=== PATIENT | male | born 1955 | race Two or more races ===

== ENCOUNTER 2021-02-16 19:53 | Inpatient (IN) | payer BC, MEDICARE ==
[~2021-02-16] VITALS: Ht 182.9 cm; Wt 178.0 kg
[2021-02-16] MEDS ORDERED: dilTIAZem 25 MG/5 ML VIAL IV ONE (20:15)
[2021-02-16 20:43] LABS: Basophils # (auto) 0 10 ^3/uL (0-0.2); Basophils % (auto) 0.2 % (0.0-2.0); Eosinophils # (auto) 0 10 ^3/uL (0-0.8); Eosinophils % (auto) 0.1 % (0.0-7.0); Hematocrit 49.9 % (41.0-53.0); Hemoglobin 16.6 g/dL (13.5-17.5); Lymphocytes # (auto) 0.8 10 ^3/uL (0.4-5.4); Lymphocytes % (auto) 10.3 % (10.0-50.0); Mean Corpuscular Hemoglobin 29.5 pg (28.0-32.0); Mean Corpuscular Hgb Conc. 33.4 g/dL (32.0-36.0); Mean Corpuscular Volume 88.4 fL (80.0-100.0); Monocytes # (auto) 0.7 10 ^3/uL (0-1.3); Monocytes % (auto) 10.3 % (0.0-12.0); Neutrophils # (auto) 5.8 10 ^3/uL (1.6-8.6); Neutrophils % (auto) 79.1 % (37.0-80.0); Nucleated Red Blood Cells % 0.3 %; Red Blood Cells 5.64 10^6/uL (4.5-5.90); Red Cell Distribution Width 16.2 % (11.8-14.3); White Blood Cell 7.3 10^3/uL (4.4-10.8)
[2021-02-16 21:10] VITALS: BP 102/63
[2021-02-16 21:56] LABS: Albumin 3.1 g/dL (3.4-5.0); Calcium 8.3 mg/dL (8.5-10.1); Potassium 4.6 mmol/L (3.5-5.1)
[2021-02-16 22:04] LABS: Total Protein 7.2 g/dL (6.4-8.2)
[2021-02-16 23:16] VITALS: BP 123/85
[2021-02-16 23:52] VITALS: BP 122/79
[2021-02-17] VITALS (9 sets, daily range): BP systolic 95–146; BP diastolic 42–100
[2021-02-17] MEDS ORDERED: dilTIAZem 25 MG/5 ML VIAL IV ONE ×2 (02:00→07:45)
[2021-02-17] MEDS ORDERED: dilTIAZem 25 MG/5 ML VIAL IV PRN (06:30)
[2021-02-17] MEDS ORDERED: ONDANSETRON HCL 4 MG/2 ML VIAL IV PRN (06:45)
[2021-02-17] MEDS ORDERED: MORPHINE SULFATE INJECTION 2 MG/ML SYRG IV PRN (06:45)
[2021-02-17] MEDS ORDERED: DOCUSATE SOD 100 MG CAP PO PRN (06:45)
[2021-02-17] MEDS ORDERED: HYDROcodone-ACET 5/325MG TAB PO PRN (06:45)
[2021-02-17] MEDS ORDERED: ALBUTEROL SULF HFA 90MCG INH 200DOSE IN PRN (06:45)
[2021-02-17] MEDS ORDERED: NITROGLYCERIN 0.4 MG SL TAB SL PRN (06:45)
[2021-02-17 08:44] LABS: Magnesium 2.4 mg/dL (1.6-2.6)
[2021-02-17] MEDS: dilTIAZem 125mg/125ml BAG KIT 100 ML IV SCH (09:05)
[2021-02-17] MEDS: DexAMETHasone SOD PHOS 10MG/1ML VIAL INJ IV SCH (09:06)
[2021-02-17] MEDS: cefTRIAXone 1GM/50ML D5W 50 ML IV SCH (09:06)
[2021-02-17] MEDS: FAMOTIDINE (10MG/ML) 2ML VL IV SCH ×2 (09:06→22:30)
[2021-02-17] MEDS: MULTIPLE VITAMIN TAB PO SCH (09:07)
[2021-02-17] MEDS: CHOLECALCIFEROL (VITD3) 2,000 UNIT CAP/TAB PO SCH (09:07)
[2021-02-17] MEDS: ZINC SULFATE 220mg CAP or TAB PO SCH (09:08)
[2021-02-17] MEDS: ASCORBIC ACID 1,000 MG TAB PO SCH (09:10)
[2021-02-17] MEDS: DOXYCYCLINE 100MG/250ML 250 ML IV SCH ×2 (09:24→22:30)
[2021-02-17] MEDS ORDERED: BUDESONIDE (INHALATION) 180 MCG IH IN SCH (10:00)
[2021-02-17] MEDS ORDERED: HYDR200T36 PO (13:37)
[2021-02-17] MEDS ORDERED: FLUT1AER3 INH (13:37)
[2021-02-17] MEDS ORDERED: DUTA1CAP PO (13:37)
[2021-02-17] MEDS ORDERED: PROM1SOL4 PO (13:37)
[2021-02-17] MEDS ORDERED: LEVO-28 PO (13:37)
[2021-02-17] MEDS ORDERED: METO-289 PO (13:37)
[2021-02-17] MEDS ORDERED: IVER3TAB PO (13:37)
[2021-02-17] MEDS ORDERED: HYDR-4069 PO (13:37)
[2021-02-17] MEDS ORDERED: REMDESIVIR PER PHARMACY 0 ML IV SCH (13:45)
[2021-02-17] MEDS ORDERED: REMDESIVIR 200 MG in NS 210ml LOADING DOSE ADULT IV ONE (15:00)
[2021-02-17] MEDS: HEPARIN SODIUM (PORCINE) 5000 UNITS/ML 1ML VIAL SC SCH ×2 (15:41→22:30)
[2021-02-17] MEDS: ALBUTEROL SULF 2.5 MG/0.5ML(0.5%) NEB SOLN NEB PRN (22:24)
[2021-02-17] MEDS: BUDESONIDE (INHALATION) 0.5 MG/2 ML NEB NEB SCH (22:25)
[2021-02-18] VITALS (9 sets, daily range): BP systolic 91–126; BP diastolic 44–94
[2021-02-18] MEDS: dilTIAZem 125mg/125ml BAG KIT 100 ML IV SCH (03:45)
[2021-02-18] MEDS: HEPARIN SODIUM (PORCINE) 5000 UNITS/ML 1ML VIAL SC SCH (05:57)
[2021-02-18] MEDS: BUDESONIDE (INHALATION) 0.5 MG/2 ML NEB NEB SCH ×3 (06:01→22:21)
[2021-02-18] MEDS: ALBUTEROL SULF 2.5 MG/0.5ML(0.5%) NEB SOLN NEB PRN (06:01)
[2021-02-18] MEDS: FAMOTIDINE (10MG/ML) 2ML VL IV SCH ×2 (09:44→22:05)
[2021-02-18] MEDS: MULTIPLE VITAMIN TAB PO SCH (09:44)
[2021-02-18] MEDS: CHOLECALCIFEROL (VITD3) 2,000 UNIT CAP/TAB PO SCH (09:44)
[2021-02-18] MEDS: DexAMETHasone SOD PHOS 10MG/1ML VIAL INJ IV SCH (09:44)
[2021-02-18] MEDS: ASCORBIC ACID 1,000 MG TAB PO SCH (09:44)
[2021-02-18] MEDS: cefTRIAXone 1GM/50ML D5W 50 ML IV SCH (09:44)
[2021-02-18] MEDS: ZINC SULFATE 220mg CAP or TAB PO SCH (09:44)
[2021-02-18 09:53] LABS: Basophils # (auto) 0 10 ^3/uL (0-0.2); Basophils % (auto) 0.1 % (0.0-2.0); Eosinophils # (auto) 0 10 ^3/uL (0-0.8); Hematocrit 47.6 % (41.0-53.0); Lymphocytes # (auto) 0.7 10 ^3/uL (0.4-5.4); Lymphocytes % (auto) 7.4 % (10.0-50.0); Mean Corpuscular Hemoglobin 29.8 pg (28.0-32.0); Mean Corpuscular Hgb Conc. 33.6 g/dL (32.0-36.0); Mean Corpuscular Volume 88.7 fL (80.0-100.0); Monocytes # (auto) 0.9 10 ^3/uL (0-1.3); Monocytes % (auto) 9.2 % (0.0-12.0); Neutrophils # (auto) 8.2 10 ^3/uL (1.6-8.6); Neutrophils % (auto) 83.3 % (37.0-80.0); Nucleated Red Blood Cells % 0.2 %; Red Blood Cells 5.37 10^6/uL (4.5-5.90); Red Cell Distribution Width 16.2 % (11.8-14.3); White Blood Cell 9.8 10^3/uL (4.4-10.8)
[2021-02-18] MEDS: DOXYCYCLINE 100MG/250ML 250 ML IV SCH ×2 (09:58→22:05)
[2021-02-18 10:10] LABS: Albumin 2.5 g/dL (3.4-5.0); Calcium 8.4 mg/dL (8.5-10.1); Potassium 4.3 mmol/L (3.5-5.1)
[2021-02-18 10:14] LABS: BUN/Creatinine Ratio 20.7; Bilirubin, Total 1.1 mg/dL (0.2-1.0); Total Protein 6.2 g/dL (6.4-8.2)
[2021-02-18] MEDS ORDERED: DIGOXIN (250MCG/ML) 2 ML AMPULE IV ONE (10:30)
[2021-02-18] MEDS ORDERED: ROCURONIUM 10MG/ML 10ML VIAL IV ONE ×2 (10:50→11:15)
[2021-02-18] MEDS ORDERED: ETOMIDATE (2MG/ML) 20ML VIAL IV ONE ×2 (10:50→11:15)
[2021-02-18] MEDS ORDERED: MIDAZOLAM DRIP 50 mg/50mL 50 ML IV ONE (11:03)
[2021-02-18] MEDS ORDERED: fentaNYL Drip 2500mCg/250mlNS 250 ML IV ONE (11:05)
[2021-02-18] MEDS: MIDAZOLAM DRIP 50 mg/50mL 50 ML IV SCH (11:45)
[2021-02-18] MEDS: fentaNYL Drip 2500mCg/250mlNS 250 ML IV SCH (11:45)
[2021-02-18] MEDS: FUROSEMIDE 20 MG/2 ML VIAL IV SCH (15:05)
[2021-02-18] MEDS: REMDESIVIR 100mg 100 MG in SODIUM CHL 0.9% 230 ML IV SCH (15:05)
[2021-02-18] MEDS: APIXABAN 5 MG TAB PO SCH ×2 (16:19→22:06)
[2021-02-18] MEDS ORDERED: NOREPINEPHRINE 8 MG/250ML KIT 250 ML IV ONE (18:00)
[2021-02-18] MEDS: NOREPINEPHRINE 8 MG/250ML KIT 250 ML IV SCH (18:36)
[2021-02-18] MEDS: AMIODARONE HCL 200 MG TAB PO SCH (22:06)
[2021-02-19] VITALS (81 sets, daily range): BP systolic 67–150; BP diastolic 17–66
[2021-02-19 09:32] LABS: Basophils # (auto) 0 10 ^3/uL (0-0.2); Basophils % (auto) 0.2 % (0.0-2.0); Eosinophils # (auto) 0 10 ^3/uL (0-0.8); Eosinophils % (auto) 0.2 % (0.0-7.0); Hematocrit 50.7 % (41.0-53.0); Hemoglobin 16.6 g/dL (13.5-17.5); Lymphocytes # (auto) 0.6 10 ^3/uL (0.4-5.4); Lymphocytes % (auto) 4.1 % (10.0-50.0); Mean Corpuscular Hemoglobin 29.4 pg (28.0-32.0); Mean Corpuscular Hgb Conc. 32.6 g/dL (32.0-36.0); Mean Corpuscular Volume 89.9 fL (80.0-100.0); Monocytes # (auto) 1.8 10 ^3/uL (0-1.3); Monocytes % (auto) 11.6 % (0.0-12.0); Neutrophils # (auto) 13.2 10 ^3/uL (1.6-8.6); Neutrophils % (auto) 83.9 % (37.0-80.0); Nucleated Red Blood Cells % 0.3 %; Red Blood Cells 5.64 10^6/uL (4.5-5.90); Red Cell Distribution Width 16.6 % (11.8-14.3); White Blood Cell 15.7 10^3/uL (4.4-10.8)
[2021-02-19] MEDS: FUROSEMIDE 20 MG/2 ML VIAL IV SCH (09:37)
[2021-02-19] MEDS: FAMOTIDINE (10MG/ML) 2ML VL IV SCH ×2 (09:37→21:55)
[2021-02-19] MEDS: DexAMETHasone SOD PHOS 10MG/1ML VIAL INJ IV SCH (09:37)
[2021-02-19] MEDS: cefTRIAXone 1GM/50ML D5W 50 ML IV SCH (09:37)
[2021-02-19] MEDS: AMIODARONE HCL 200 MG TAB PO SCH ×2 (09:38→22:01)
[2021-02-19] MEDS: ASCORBIC ACID 1,000 MG TAB PO SCH (09:38)
[2021-02-19] MEDS: APIXABAN 5 MG TAB PO SCH ×2 (09:38→22:01)
[2021-02-19] MEDS: CHOLECALCIFEROL (VITD3) 2,000 UNIT CAP/TAB PO SCH (09:38)
[2021-02-19] MEDS: ZINC SULFATE 220mg CAP or TAB PO SCH (09:38)
[2021-02-19] MEDS: MULTIPLE VITAMIN TAB PO SCH (09:38)
[2021-02-19 09:43] LABS: Albumin 2.5 g/dL (3.4-5.0); Calcium 8.5 mg/dL (8.5-10.1); Potassium 5.1 mmol/L (3.5-5.1)
[2021-02-19 09:47] LABS: BUN/Creatinine Ratio 25.4; Bilirubin, Total 1.1 mg/dL (0.2-1.0); Total Protein 6.2 g/dL (6.4-8.2)
[2021-02-19] MEDS: MIDAZOLAM DRIP 50 mg/50mL 50 ML IV SCH ×4 (09:56→21:53)
[2021-02-19] MEDS: BUDESONIDE (INHALATION) 0.5 MG/2 ML NEB NEB SCH ×2 (10:55→18:58)
[2021-02-19] MEDS: fentaNYL Drip 2500mCg/250mlNS 250 ML IV SCH ×2 (11:15→21:50)
[2021-02-19] MEDS: DOXYCYCLINE 100MG/250ML 250 ML IV SCH ×2 (11:47→22:00)
[2021-02-19] MEDS: REMDESIVIR 100mg 100 MG in SODIUM CHL 0.9% 230 ML IV SCH (15:47)
[2021-02-19] MEDS: dilTIAZem 125mg/125ml BAG KIT 100 ML IV SCH ×2 (16:26)
[2021-02-19] MEDS: NOREPINEPHRINE 8 MG/250ML KIT 250 ML IV SCH (16:34)
[2021-02-19] MEDS: ALBUTEROL SULF 2.5 MG/0.5ML(0.5%) NEB SOLN NEB PRN (18:58)
[2021-02-20] VITALS (104 sets, daily range): BP systolic 79–120; BP diastolic 33–71
[2021-02-20] MEDS: MIDAZOLAM DRIP 50 mg/50mL 50 ML IV SCH ×6 (00:48→21:06)
[2021-02-20 04:18] LABS: Basophils # (auto) 0 10 ^3/uL (0-0.2); Basophils % (auto) 0.1 % (0.0-2.0); Eosinophils # (auto) 0 10 ^3/uL (0-0.8); Hematocrit 48.3 % (41.0-53.0); Hemoglobin 15.6 g/dL (13.5-17.5); Lymphocytes # (auto) 0.5 10 ^3/uL (0.4-5.4); Mean Corpuscular Hemoglobin 28.8 pg (28.0-32.0); Mean Corpuscular Hgb Conc. 32.2 g/dL (32.0-36.0); Mean Corpuscular Volume 89.4 fL (80.0-100.0); Monocytes # (auto) 1.6 10 ^3/uL (0-1.3); Monocytes % (auto) 12.4 % (0.0-12.0); Neutrophils % (auto) 83.5 % (37.0-80.0); Nucleated Red Blood Cells % 0.2 %; Red Cell Distribution Width 16.3 % (11.8-14.3); White Blood Cell 13.2 10^3/uL (4.4-10.8)
[2021-02-20 04:33] LABS: Albumin 2.3 g/dL (3.4-5.0); Potassium 4.8 mmol/L (3.5-5.1)
[2021-02-20 04:38] LABS: BUN/Creatinine Ratio 25.9; Bilirubin, Total 1.1 mg/dL (0.2-1.0); Total Protein 5.7 g/dL (6.4-8.2)
[2021-02-20] MEDS: NOREPINEPHRINE 8 MG/250ML KIT 250 ML IV SCH (06:41)
[2021-02-20] MEDS: cefTRIAXone 1GM/50ML D5W 50 ML IV SCH (08:35)
[2021-02-20] MEDS: fentaNYL Drip 2500mCg/250mlNS 250 ML IV SCH ×2 (09:18→22:00)
[2021-02-20] MEDS ORDERED: FUROSEMIDE 20 MG/2 ML VIAL IV ONE (09:30)
[2021-02-20] MEDS: ZINC SULFATE 220mg CAP or TAB PO SCH (09:59)
[2021-02-20] MEDS: MULTIPLE VITAMIN TAB PO SCH (10:00)
[2021-02-20] MEDS: APIXABAN 5 MG TAB PO SCH ×2 (10:00→21:07)
[2021-02-20] MEDS: ASCORBIC ACID 1,000 MG TAB PO SCH (10:00)
[2021-02-20] MEDS: CHOLECALCIFEROL (VITD3) 2,000 UNIT CAP/TAB PO SCH (10:00)
[2021-02-20] MEDS: DexAMETHasone SOD PHOS 10MG/1ML VIAL INJ IV SCH (10:01)
[2021-02-20] MEDS: FAMOTIDINE (10MG/ML) 2ML VL IV SCH ×2 (10:01→21:00)
[2021-02-20] MEDS: AMIODARONE HCL 200 MG TAB PO SCH ×2 (10:01→21:07)
[2021-02-20] MEDS: FUROSEMIDE 20 MG/2 ML VIAL IV SCH (10:02)
[2021-02-20] MEDS: DOXYCYCLINE 100MG/250ML 250 ML IV SCH ×2 (10:03→21:06)
[2021-02-20] MEDS: ALBUTEROL SULF 2.5 MG/0.5ML(0.5%) NEB SOLN NEB PRN (12:44)
[2021-02-20] MEDS: BUDESONIDE (INHALATION) 0.5 MG/2 ML NEB NEB SCH ×2 (12:44→22:27)
[2021-02-20] MEDS: dilTIAZem 125mg/125ml BAG KIT 100 ML IV SCH (14:03)
[2021-02-21] VITALS (110 sets, daily range): BP systolic 66–126; BP diastolic 30–90
[2021-02-21] MEDS: MIDAZOLAM DRIP 50 mg/50mL 50 ML IV SCH ×6 (02:22→22:36)
[2021-02-21] MEDS: dilTIAZem 125mg/125ml BAG KIT 100 ML IV SCH (03:30)
[2021-02-21 05:07] LABS: Basophils # (auto) 0 10 ^3/uL (0-0.2); Basophils % (auto) 0.1 % (0.0-2.0); Eosinophils # (auto) 0 10 ^3/uL (0-0.8); Eosinophils % (auto) 0.1 % (0.0-7.0); Hematocrit 51.3 % (41.0-53.0); Hemoglobin 16.3 g/dL (13.5-17.5); Lymphocytes # (auto) 0.8 10 ^3/uL (0.4-5.4); Lymphocytes % (auto) 4.6 % (10.0-50.0); Mean Corpuscular Hemoglobin 28.7 pg (28.0-32.0); Mean Corpuscular Hgb Conc. 31.8 g/dL (32.0-36.0); Mean Corpuscular Volume 90.2 fL (80.0-100.0); Monocytes # (auto) 2.5 10 ^3/uL (0-1.3); Monocytes % (auto) 13.8 % (0.0-12.0); Neutrophils # (auto) 14.7 10 ^3/uL (1.6-8.6); Neutrophils % (auto) 81.4 % (37.0-80.0); Nucleated Red Blood Cells % 0.2 %; Red Blood Cells 5.69 10^6/uL (4.5-5.90); Red Cell Distribution Width 16.6 % (11.8-14.3)
[2021-02-21 05:33] LABS: Albumin 2.4 g/dL (3.4-5.0); Calcium 8.2 mg/dL (8.5-10.1); Potassium 5.1 mmol/L (3.5-5.1)
[2021-02-21 05:42] LABS: BUN/Creatinine Ratio 27.1; Bilirubin, Total 1.2 mg/dL (0.2-1.0); CRP High Sensitivity 2.27 mg/dL (< 0.3); Total Protein 6.2 g/dL (6.4-8.2)
[2021-02-21] MEDS: BUDESONIDE (INHALATION) 0.5 MG/2 ML NEB NEB SCH ×2 (06:08→22:10)
[2021-02-21] MEDS: ALBUTEROL SULF 2.5 MG/0.5ML(0.5%) NEB SOLN NEB PRN ×2 (06:08→22:10)
[2021-02-21] MEDS: cefTRIAXone 1GM/50ML D5W 50 ML IV SCH (09:10)
[2021-02-21] MEDS: fentaNYL Drip 2500mCg/250mlNS 250 ML IV SCH ×2 (09:29→22:36)
[2021-02-21] MEDS: MULTIPLE VITAMIN TAB PO SCH (09:42)
[2021-02-21] MEDS: DOXYCYCLINE 100MG/250ML 250 ML IV SCH ×2 (09:42→22:01)
[2021-02-21] MEDS: FAMOTIDINE (10MG/ML) 2ML VL IV SCH ×2 (09:42→22:01)
[2021-02-21] MEDS: FUROSEMIDE 20 MG/2 ML VIAL IV SCH (09:43)
[2021-02-21] MEDS: DexAMETHasone SOD PHOS 10MG/1ML VIAL INJ IV SCH (09:43)
[2021-02-21] MEDS: AMIODARONE HCL 200 MG TAB PO SCH (09:43)
[2021-02-21] MEDS: APIXABAN 5 MG TAB PO SCH ×2 (09:43→22:01)
[2021-02-21] MEDS: ASCORBIC ACID 1,000 MG TAB PO SCH (09:44)
[2021-02-21] MEDS: CHOLECALCIFEROL (VITD3) 2,000 UNIT CAP/TAB PO SCH (09:47)
[2021-02-21] MEDS: ZINC SULFATE 220mg CAP or TAB PO SCH (11:00)
[2021-02-21] MEDS: NOREPINEPHRINE 8 MG/250ML KIT 250 ML IV SCH ×2 (11:03→19:52)
[2021-02-21] MEDS ORDERED: AMIODARONE HCL 150 MG in D5W 5% 100 ML IV ONE (12:45)
[2021-02-21] MEDS ORDERED: AMIODARONE 450mg/250ml AE 250 ML IV SCH (12:45)
[2021-02-21] MEDS ORDERED: Jevity 1.2 Cal/Fiber 1 Liter GT SCH (13:15)
[2021-02-21] MEDS: ALBUMIN 25% 100 ML IV SCH ×2 (13:58→21:00)
[2021-02-21] MEDS: ACETAMINOPHEN 500 MG TAB PO PRN (15:39)
[2021-02-21] MEDS ORDERED: METOPROLOL TARTRATE 1MG/1ML-5ML VIAL IV ONE (19:14)
[2021-02-21] MEDS: AMIODARONE 450mg/250ml AE 250 ML IV SCH (20:30)
[2021-02-21] MEDS ORDERED: VASOPRESSIN 50 UNITS in D5W 5% 247.5 ML IV SCH (23:15)
[2021-02-21] MEDS: PHENYLEPHRINE IV 250 ML IV SCH (23:45)
[2021-02-22] VITALS (105 sets, daily range): BP systolic 64–153; BP diastolic 28–124
[2021-02-22] MEDS: FUROSEMIDE INJECTION 100 MG in SODIUM CHL 0.9% 100 ML IV SCH ×2
[2021-02-22] MEDS: ACETAMINOPHEN 500 MG TAB PO PRN ×4 (00:30→15:57)
[2021-02-22] MEDS: PHENYLEPHRINE IV 250 ML IV SCH ×2 (02:30→10:03)
[2021-02-22] MEDS: NOREPINEPHRINE 8 MG/250ML KIT 250 ML IV SCH ×3 (02:39→16:10)
[2021-02-22] MEDS: MIDAZOLAM DRIP 50 mg/50mL 50 ML IV SCH ×5 (02:39→18:50)
[2021-02-22 04:18] LABS: White Blood Cell 22.9 10^3/uL (4.4-10.8)
[2021-02-22 04:19] LABS: Hematocrit 53.5 % (41.0-53.0); Hemoglobin 17.5 g/dL (13.5-17.5); Mean Corpuscular Hgb Conc. 32.7 g/dL (32.0-36.0); Mean Corpuscular Volume 91.8 fL (80.0-100.0); Red Blood Cells 5.83 10^6/uL (4.5-5.90)
[2021-02-22 04:28] LABS: Basophils % (manual) 0 (0.0-2.0); Blast Cells 0; Eosinophils % (manual) 0 (0-7); Metamyelocytes % 0; Promyelocytes % 0; Reactive Lymphocytes 0
[2021-02-22 04:33] LABS: BUN/Creatinine Ratio 19.1; Calcium 7.8 mg/dL (8.5-10.1)
[2021-02-22 04:35] LABS: Potassium 6.3 mmol/L (3.5-5.1)
[2021-02-22] MEDS: ALBUMIN 25% 100 ML IV SCH (05:00)
[2021-02-22] MEDS ORDERED: FUROSEMIDE 20 MG/2 ML VIAL IV ONE (05:00)
[2021-02-22] MEDS ORDERED: DEXTROSE (50%) 50ML SYRG IV ONE ×3 (05:00→23:15)
[2021-02-22] MEDS ORDERED: SODIUM BICARBONATE 8.4% INJ 50ML SYRINGE IV ONE (05:00)
[2021-02-22] MEDS ORDERED: InsuLIN REG 1unit/0.01ml Soln (100units/ml) IV ONE ×3 (05:00→23:15)
[2021-02-22] MEDS ORDERED: CALCIUM GLUC 1,000mg/50ml-NS 50 ML IV ONE ×4 (05:00→23:15)
[2021-02-22] MEDS ORDERED: ALBUTEROL SULF 2.5 MG/0.5ML(0.5%) NEB SOLN NEB ONE ×2 (05:00→23:15)
[2021-02-22] MEDS ORDERED: FUROSEMIDE 20 MG/2 ML VIAL ONE (05:14)
[2021-02-22] MEDS ORDERED: DEXTROSE 50% SYRINGE 50 ML IV ONE (05:15)
[2021-02-22] MEDS ORDERED: SODIUM BICARBONATE 8.4% INJ 50ML SYRINGE ONE ×2 (05:16→21:23)
[2021-02-22 06:16] LABS: Band Neutrophils % (manual) 2; Lymphocytes % (manual) 8 (10.0-50.0); Monocytes % (manual) 4 (0-12); Myelocytes % 1
[2021-02-22] MEDS: cefTRIAXone 1GM/50ML D5W 50 ML IV SCH (08:03)
[2021-02-22] MEDS: MULTIPLE VITAMIN TAB PO SCH (09:22)
[2021-02-22] MEDS: FAMOTIDINE (10MG/ML) 2ML VL IV SCH ×2 (09:22→23:00)
[2021-02-22] MEDS: CHOLECALCIFEROL (VITD3) 2,000 UNIT CAP/TAB PO SCH (09:23)
[2021-02-22] MEDS: APIXABAN 5 MG TAB PO SCH (09:24)
[2021-02-22 09:58] LABS: Lactic Acid w/Reflex 3.3 mmol/L (0.4-2.0)
[2021-02-22] MEDS: DexAMETHasone SOD PHOS 10MG/1ML VIAL INJ IV SCH (10:00)
[2021-02-22] MEDS ORDERED: FUROSEMIDE 20 MG/2 ML VIAL IV SCH (10:00)
[2021-02-22] MEDS ORDERED: FUROSEMIDE 100 MG/10ML VIAL IV SCH ×2 (10:30→15:30)
[2021-02-22] MEDS: fentaNYL Drip 2500mCg/250mlNS 250 ML IV SCH (13:06)
[2021-02-22] MEDS: AMIODARONE 450mg/250ml AE 250 ML IV SCH (13:30)
[2021-02-22 14:05] LABS: Partial Thromboplastin Time 48.7 sec (23.6-33.0)
[2021-02-22 14:10] LABS: INR > 8.0 (0.9-1.15)
[2021-02-22] MEDS ORDERED: CEFEPIME 1 GM in SODIUM CHL 0.9% 50 ML IV ONE (15:00)
[2021-02-22 16:24] LABS: Albumin 2.9 g/dL (3.4-5.0); BUN/Creatinine Ratio 18.6; Calcium 7.8 mg/dL (8.5-10.1)
[2021-02-22 16:26] LABS: Bilirubin, Total 1.9 mg/dL (0.2-1.0); Total Protein 6.4 g/dL (6.4-8.2)
[2021-02-22 16:30] LABS: Potassium 5.9 mmol/L (3.5-5.1)
[2021-02-22] MEDS: PHENYLEPHRINE INJ 80 MG in SODIUM CHL 0.9% 242 ML IV SCH ×2 (16:30→20:00)
[2021-02-22] MEDS: BUDESONIDE (INHALATION) 0.5 MG/2 ML NEB NEB SCH ×2 (16:34→19:03)
[2021-02-22] MEDS ORDERED: SODIUM BICARBONATE 8.4 % INJ 50ML VIAL IV ONE ×3 (17:00→23:15)
[2021-02-22] MEDS: SODIUM ZIRCONIUM CYCL 10 GM PAK PO SCH ×2 (17:27→22:00)
[2021-02-22] MEDS: NOREPINEPHRINE BITARTRATE 32 MG in SODIUM CHL 0.9% 218 ML IV SCH (19:00)
[2021-02-22] MEDS: ALBUTEROL SULF 2.5 MG/0.5ML(0.5%) NEB SOLN NEB PRN (19:03)
[2021-02-22 20:56] LABS: Hematocrit 55.7 % (41.0-53.0); Hemoglobin 17.1 g/dL (13.5-17.5); Mean Corpuscular Hemoglobin 28.9 pg (28.0-32.0); Mean Corpuscular Hgb Conc. 30.7 g/dL (32.0-36.0); Mean Corpuscular Volume 94.1 fL (80.0-100.0); Red Blood Cells 5.92 10^6/uL (4.5-5.90); Red Cell Distribution Width 18.3 % (11.8-14.3); White Blood Cell 27.1 10^3/uL (4.4-10.8)
[2021-02-22 21:02] LABS: Band Neutrophils % (manual) 0; Basophils % (manual) 0 (0.0-2.0); Blast Cells 0; Eosinophils % (manual) 0 (0-7); Metamyelocytes % 0; Promyelocytes % 0; Reactive Lymphocytes 0
[2021-02-22 21:14] LABS: Albumin 2.5 g/dL (3.4-5.0); BUN/Creatinine Ratio 17.9; Calcium 7.9 mg/dL (8.5-10.1); Potassium 5.5 mmol/L (3.5-5.1)
[2021-02-22 21:17] LABS: Bilirubin, Total 1.7 mg/dL (0.2-1.0); Total Protein 5.9 g/dL (6.4-8.2)
[2021-02-22 21:18] LABS: Partial Thromboplastin Time 43.6 sec (23.6-33.0)
[2021-02-22 21:26] LABS: Lymphocytes % (manual) 17 (10.0-50.0); Monocytes % (manual) 7 (0-12); Myelocytes % 1
[2021-02-22 21:30] LABS: INR > 8.0 (0.9-1.15)
[2021-02-22] MEDS ORDERED: CEFEPIME 1 GM in SODIUM CHL 0.9% 50 ML IV SCH (22:00)
[2021-02-22] MEDS ORDERED: NOREPINEPHRINE 8 MG/250ML KIT 250 ML IV ONE (22:13)
[2021-02-22] MEDS ORDERED: DIGOXIN (250MCG/ML) 2 ML AMPULE IV ONE (23:15)
[2021-02-22] MEDS ORDERED: SODIUM BICARBONATE 50ML VIAL 100 ML in D5W 5% 1,000 ML IV SCH (23:15)
[2021-02-23] VITALS (29 sets, daily range): BP systolic 91–131; BP diastolic 35–102
[2021-02-23] MEDS: AMIODARONE 450mg/250ml AE 250 ML IV SCH ×2 (00:45→06:00)
[2021-02-23] MEDS ORDERED: FUROSEMIDE INJECTION 10 ML ONE ×2 (00:54→05:05)
[2021-02-23] MEDS ORDERED: METOPROLOL TARTRATE 1MG/1ML-5ML VIAL IV ONE ×2 (01:08→01:15)
[2021-02-23] MEDS: fentaNYL Drip 2500mCg/250mlNS 250 ML IV SCH (02:17)
[2021-02-23] MEDS: MIDAZOLAM DRIP 50 mg/50mL 50 ML IV SCH ×2 (02:17→04:23)
[2021-02-23] MEDS ORDERED: NOREPINEPHRINE 8 MG/250ML KIT 250 ML IV ONE ×2 (03:02→08:20)
[2021-02-23] MEDS ORDERED: NOREPINEPHRINE BITARTRATE IV ONE (03:04)
[2021-02-23] MEDS: NOREPINEPHRINE BITARTRATE 32 MG in SODIUM CHL 0.9% 218 ML IV SCH (03:30)
[2021-02-23 03:57] LABS: Mean Corpuscular Hemoglobin 28.5 pg (28.0-32.0); Mean Corpuscular Hgb Conc. 30.8 g/dL (32.0-36.0); Mean Corpuscular Volume 92.3 fL (80.0-100.0); Red Blood Cells 6.32 10^6/uL (4.5-5.90); Red Cell Distribution Width 18.3 % (11.8-14.3); White Blood Cell 26.4 10^3/uL (4.4-10.8)
[2021-02-23 03:59] LABS: Hematocrit 58.3 % (41.0-53.0)
[2021-02-23 04:00] LABS: Basophils % (manual) 0 (0.0-2.0); Blast Cells 0; Eosinophils % (manual) 0 (0-7); Metamyelocytes % 0; Myelocytes % 0; Promyelocytes % 0; Reactive Lymphocytes 0
[2021-02-23] MEDS: FUROSEMIDE INJECTION 100 MG in SODIUM CHL 0.9% 100 ML IV SCH ×2 (04:00→04:30)
[2021-02-23 04:35] LABS: Albumin 2.7 g/dL (3.4-5.0); BUN/Creatinine Ratio 18.3; Bilirubin, Total 2.1 mg/dL (0.2-1.0); Magnesium 3.1 mg/dL (1.6-2.6); Phosphorus 6.5 mg/dL (2.5-4.90); Total Protein 6.3 g/dL (6.4-8.2)
[2021-02-23 04:36] LABS: Potassium 5.9 mmol/L (3.5-5.1)
[2021-02-23] MEDS ORDERED: InsuLIN REG 1unit/0.01ml Soln (100units/ml) IV ONE ×2 (05:00→06:15)
[2021-02-23] MEDS ORDERED: DEXTROSE (50%) 50ML SYRG IV ONE ×2 (05:00→06:15)
[2021-02-23] MEDS ORDERED: CALCIUM GLUC 1,000mg/50ml-NS 50 ML IV ONE ×2 (05:00→06:15)
[2021-02-23] MEDS ORDERED: ALBUTEROL SULF 2.5 MG/0.5ML(0.5%) NEB SOLN NEB ONE (05:00)
[2021-02-23 05:12] LABS: Partial Thromboplastin Time 46.7 sec (23.6-33.0)
[2021-02-23 05:15] LABS: INR > 8.0 (0.9-1.15)
[2021-02-23 05:42] LABS: Band Neutrophils % (manual) 5; Lymphocytes % (manual) 12 (10.0-50.0); Monocytes % (manual) 7 (0-12)
[2021-02-23] MEDS: SODIUM ZIRCONIUM CYCL 10 GM PAK PO SCH (06:00)
[2021-02-23] MEDS ORDERED: SODIUM BICARBONATE 8.4 % INJ 50ML VIAL IV ONE (06:15)
[2021-02-23] MEDS: ACETAMINOPHEN 500 MG TAB PO PRN (06:39)
[2021-02-23] MEDS ORDERED: LACTULOSE 20Gm/30ML SOLN PO SCH (06:45)
[2021-02-23] MEDS ORDERED: PHENYLEPHRINE IV 250 ML IV ONE (08:20)
[2021-02-23] MEDS ORDERED: EPINEPHrine HCL 1 MG/10 ML SYRG IV ONE (08:54)
[2021-02-23] MEDS ORDERED: ATROPINE SULF 1 MG/10ml SYR IM ONE (08:54)
[2021-02-23] MEDS ORDERED: SODIUM BICARBONATE 8.4% INJ 50ML SYRINGE IV ONE (08:54)
[2021-02-23] MEDS ORDERED: CALCIUM CHLOR(10%) 100MG/ML 10ML SYRINGE IV ONE (08:54)
[2021-02-23] MEDS: BUDESONIDE (INHALATION) 0.5 MG/2 ML NEB NEB SCH (11:30)
[2021-02-23] MEDS ORDERED: CEFEPIME 1 GM in SODIUM CHL 0.9% 50 ML IV SCH (16:00)
== END 2021-02-23 08:55 | DRG 870 ==
LOC: EDBD 19:53 → ER 19:57 → TELE 02-17 06:34 → UNDOADMIN 02-17 06:35 → TELE 02-17 06:35 → ICU WEST 02-19 05:50
PROVIDERS: ADMIT Nurse Practitioner Family; ATTEND Internal Medicine Pulmonary Disease
PROC: XW033E5 Introduction of Remdesivir Anti-infective into Peripheral Vein, Percutaneous Approach, New Technology Group 5 (ICD-10-PCS; 2021-02-17)
PROC: 5A09457 Assistance with Respiratory Ventilation, 24-96 Consecutive Hours, Continuous Positive Airway Pressure (ICD-10-PCS; 2021-02-17)
PROC: 05HD33Z Insertion of Infusion Device into Right Cephalic Vein, Percutaneous Approach (ICD-10-PCS; 2021-02-17)
PROC: B54MZZA Ultrasonography of Right Upper Extremity Veins, Guidance (ICD-10-PCS; 2021-02-17)
PROC: 5A1955Z Respiratory Ventilation, Greater than 96 Consecutive Hours (ICD-10-PCS; principal; 2021-02-18)
PROC: 06HM33Z Insertion of Infusion Device into Right Femoral Vein, Percutaneous Approach (ICD-10-PCS; 2021-02-18)
PROC: 0BH17EZ Insertion of Endotracheal Airway into Trachea, Via Natural or Artificial Opening (ICD-10-PCS; 2021-02-18)
PROC: 05H933Z Insertion of Infusion Device into Right Brachial Vein, Percutaneous Approach (ICD-10-PCS; 2021-02-18)
PROC: B54MZZA Ultrasonography of Right Upper Extremity Veins, Guidance (ICD-10-PCS; 2021-02-18)
PROC: 5A12012 Performance of Cardiac Output, Single, Manual (ICD-10-PCS; 2021-02-22)
PROC: 5A12012 Performance of Cardiac Output, Single, Manual (ICD-10-PCS; 2021-02-23)
DX: A41.89 Other specified sepsis (principal); U07.1 COVID-19; J12.82 Pneumonia due to coronavirus disease 2019; J96.01 Acute respiratory failure with hypoxia; R65.21 Severe sepsis with septic shock; E87.1 Hypo-osmolality and hyponatremia; J44.0 Chronic obstructive pulmonary disease with (acute) lower respiratory infection; N17.9 Acute kidney failure, unspecified; I31.3 Pericardial effusion (noninflammatory); Z99.11 Dependence on respirator [ventilator] status; Z68.43 Body mass index [BMI] 50.0-59.9, adult; E66.01 Morbid (severe) obesity due to excess calories; I11.0 Hypertensive heart disease with heart failure; I46.9 Cardiac arrest, cause unspecified; I50.9 Heart failure, unspecified; I48.91 Unspecified atrial fibrillation; Z79.01 Long term (current) use of anticoagulants
CPT/HCPCS: 36415; 36600; 71045; 80048; 80053; 82728; 82805; 82962; 83605; 83615; 83735; 83880; 84100; 84132; 84484; 85007; 85025; 85027; 85379; 85610; 85730; 86141; 87040; 87070; 87077; 87081; 87205; 87426; 92950; 93005; 93306; 93970; 94002; 94003; 94640; 94660; 96374; 96376; 99291; G0378; J0696; J1100; J2250; J3490; J7060; P9047